=== PATIENT | female | born 1995 | race American Indian/Alaskan Native ===

== ENCOUNTER 2017-01-26 09:52 | Emergency (ER) | payer MEDICAID | END 2017-01-26 09:53 | disposition left against medical advice (07) | LOC: ED 09:52 | DX: H57.8 Other specified disorders of eye and adnexa (principal); Z53.21 Procedure and treatment not carried out due to patient leaving prior to being seen by health care provider ==

== ENCOUNTER 2017-09-10 15:28 | Emergency (ER) | payer SELFPAY ==
[2017-09-10 16:15] VITALS: BP 148/63
[2017-09-10] MEDS ORDERED: ZOFRAN IV ONE (17:36)
[2017-09-10] MEDS ORDERED: PEPCID IV ONE (17:36)
[2017-09-10] MEDS ORDERED: TYLENOL PO ONE (17:41)
--- NOTE | 2017-09-10 17:54 | Emergency Department Report ---
Blank Doc - Documentation Documentation: 22-year-old female approximately 3 months positive Hospital complaining of nausea, vomiting 5 today with by mouth intolerance. Patient noticed specks of blood. Suprapubic cramping abdominal pain. No dysuria, fever , or diarrhea. Patient had her first [employer] visit but awaiting her Medicaid activation to obtain her first ultrasound. This is her third , one living child, history of 1 . [employer] group: [facility] orders: labs cbc,cmp, lipase, hcg, ua meds zofran, d5NS x 2, pepcid, tylenol imaging US ob, transvag
[2017-09-10 17:58] LABS: Basophils # (Auto) 0.1 K/mm3 (0.0-0.1); Basophils % (Auto) 1.1 % (0.0-1.8); Eosinophils % (Auto) 0.3 % (0.0-4.3); Hematocrit 30.4 % (30.3-42.9); Hemoglobin 10.6 gm/dl (10.1-14.3); Lymphocytes # (Auto) 1.7 K/mm3 (1.2-5.4); Lymphocytes % (Auto) 16.1 % (13.4-35.0); Mean Corpuscular HGB Conc 35 % (30-34); Mean Corpuscular Hemoglobin 32 pg (28-32); Mean Corpuscular Volume 91 fl (79-97); Monocytes # (Auto) 0.4 K/mm3 (0.0-0.8); Monocytes % (Auto) 3.7 % (0.0-7.3); Platelet Count 265 K/mm3 (140-440); Red Blood Count 3.36 M/mm3 (3.65-5.03); Red Cell Distribution Width 13.3 % (13.2-15.2)
[2017-09-10] MEDS ORDERED: D5NS 1,000 ML IV SCH ×2 (18:00)
[2017-09-10 18:13] LABS: Alanine Aminotransferase 14 units/L (7-56); Albumin 4.1 g/dL (3.9-5); BUN/Creatinine Ratio 22; Blood Urea Nitrogen 11 mg/dL (7-17); Calcium 8.9 mg/dL (8.4-10.2); Hemolysis Index 7; Lipase 21 units/L (13-60)
--- NOTE | 2017-09-10 19:58 | Ultrasound Report ---
FINAL REPORT EXAM: US OB > = 14 WEEKS FETUS HISTORY: vomiting, suprapubic TECHNIQUE: Real-time sonography was performed of the gravid uterus and images are submitted for interpretation. Detailed anatomic survey was not performed PRIORS: None. FINDINGS: There is a single fetus in the uterus in a breech presentation. The placenta is anterior and the os is clear. There is a normal amount of amniotic fluid. The heart is beating at a rate of 167 beats per minute. Biometric measurements give an estimated gestational age of 16 weeks 4 days. IMPRESSION: 1. Single, live intrauterine gestation, estimated gestational age 16 weeks 4 days for an estimated date of confinement of 02/21/2018. 2. Breech presentation
== END 2017-09-10 20:30 ==
LOC: ED 15:28
DX: O21.9 Vomiting of pregnancy, unspecified (principal); O26.891 Other specified pregnancy related conditions, first trimester; R10.2 Pelvic and perineal pain; Z3A.16 16 weeks gestation of pregnancy
CPT/HCPCS: 36415; 76805; 80053; 83690; 83735; 84702; 85025; 96361; 96374; 96375; 99284; J7042; J2405

== ENCOUNTER 2017-11-16 20:19 | Outpatient (CLI) | payer MEDICAID ==
[2017-11-16] MEDS ORDERED: LACTATED RINGERS 500 ML IV ONE (21:15)
--- NOTE | 2017-11-16 23:04 | Event Note ---
Subj: 22yo at 25 4/7weeks presents complaining of vomiting 3 times within the last 4 hours. She states she had a cough which she took Tylenol for and that triggered her vomiting. She denies loss of fluid, vaginal bleeding and reports good movement. She has a history of a previous section. Obj: Vital Signs (72 hours) 11/16/17 21:14 Temperature 97.6 F Respiratory 16 Rate FHT 150s Assess: 1. 25 week 2. Nausea & vomiting Plan: 1. UA 2. PO challenge. May be discharged home once passes PO challenge with PTL precautions. 3. Zofran for nausea.
[2017-11-16 23:22] LABS: Bacteria,Urine 4+ /HPF (Negative); Bilirubin,Urine NEG (Negative); Blood,Urine NEG (Negative); Color,Urine Yellow (Yellow); Mucus,Urine FEW /HPF; Protein,Urine <15 mg/dL mg/dL (Negative); Urobilinogen,Urine < 2.0 mg/dL (<2.0)
== END 2017-11-16 22:56 | disposition home or self-care (01) ==
LOC: TRG 20:19
PROVIDERS: ATTEND Obstetrics & Gynecology
DX: O21.2 Late vomiting of pregnancy (principal); Z3A.25 25 weeks gestation of pregnancy
CPT/HCPCS: 59025; 81001

== ENCOUNTER 2018-02-14 18:08 | Outpatient (CLI) | payer MEDICAID ==
--- NOTE | 2018-02-14 20:03 | Ultrasound Report ---
FINAL REPORT PROCEDURE: US OB BPP WO NON-STRESS TECHNIQUE: Sonographic evaluation for breathing, movement, tone, and amniotic fluid volume was performed. CPT 60382 HISTORY: SCHEDULED C/S FOR 02/16/18. COMPARISON: No prior studies are available for comparison. FINDINGS: Amniotic fluid volume: Normal-score 2. At least one vertical pocket > 2 cm or more in vertical axis. breathing: Normal-score 2. movement: Normal-score 2. tone: Normal. Score: 8 of 8. There is a single intrauterine gestation in cephalic presentation. heart rate is 155 beats per minute. IMPRESSION: Normal biophysical profile.
[2018-02-14 20:34] LABS: Alanine Aminotransferase 11 units/L (7-56); Albumin 3.4 g/dL (3.9-5)
[2018-02-14 20:37] LABS: Bilirubin,Direct < 0.2 mg/dL (0-0.2)
[2018-02-14] MEDS ORDERED: LACTATED RINGERS 1,000 ML ONE (20:53)
[2018-02-16 12:55] VITALS: BP 135/94
== END 2018-02-14 22:14 | disposition home or self-care (01) ==
LOC: TRG 18:08
PROVIDERS: ATTEND Obstetrics & Gynecology Gynecology
DX: O47.1 False labor at or after 37 completed weeks of gestation (principal); Z3A.38 38 weeks gestation of pregnancy
CPT/HCPCS: 36415; 59025; 76819; 80074; 82239; 96360; J7120